=== PATIENT | male | born 1975 ===

== ENCOUNTER 2025-03-27 14:53 | Outpatient (AMB) | payer BC, SELFPAY ==
--- NOTE | 2025-03-27 14:57 | MHC.OFFVIS ---
Vital Signs 03/27/25 14:58 Height 6 ft 2 in Weight 266 lb BMI 34.1 BP 122/82 Blood Pressure Location Lt brachial Position Sitting Pulse 69 Pulse Source Pulse Oximeter Pulse Oximetry (%) 97 Oxygen Delivery Method Room Air Intake Visit Reasons: DVT (deep venous thrombosis), Obstructive sleep apnea, Pulmonary embolism Intake Note: pt is here as a new patient, PE Ship Pilot Dispatcher Required: No Allergies No Known Allergies Allergy (Verified 03/28/25 08:23) Medication List - Last Reconciled 03/28/25 by Zhanna Clarke MD allopurinol 300 mg PO DAILY indomethacin ER 75 mg PO DAILY PRN rivaroxaban (Xarelto) 10 mg PO DAILY Do you need a note to return to daycare/school/sports/work: No HPI HPI Obstructive sleep apnea: Details: TAQUERIA CEVALLOS ) is 50 years old gentleman. 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 Origionally from [facility], for the past many years he had established his Academy in [place]. 4 years ago( in 2020 ) he had sudden chest pain and shortness of breath. Evaluated at local hospital and found to have bilateral pulmonary emboli and bilateral DVT This was unprovoked ( No injuries ) Treated with. Anticoagulation and improved . He was started on Xarelto , which he kept on taking up until 2023.. No specific coagulation workup was done. He was followed up on a yearly basis by his it senior analyst.. In year 2023 he had stopped Xarelto for a couple of months. Then he had another bout of acute shortness of breath for which he did go back to the hospital and found to have bilateral pulmonary emboli. As well as residual DVT in right leg. He has had varicose veins in both legs . He tells me that he was found to have elevation of high sensitivity troponin-1. He did have echocardiogram . Cardiac duong has been okay , but he was getting annual cardiology follow-up. Now he has moved back to [facility]. He is very. 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 Does get mild shortness of breath without cough or wheezing , on high level physical activity. His current medications include allopurinol 300 mg daily, this is for hyperuricemia but he has not had any active gouty attacks. He was given indomethacin 75 mg p.o. once a day only p.r.n. if he has any gouty attack. He has not needed to use indomethacin. He is nonsmoker, nondrinker. He is moderately obese, but healthy, muscular. He denies any symptoms of sleep apnea. Claims that he sleeps good , may have some snoring but he has no respiratory pauses, no daytime sleepiness. [facility] Medical History (Updated 03/28/25 @ 09:05 by Zhanna Clarke MD) Obesity (BMI 30-39.9) Hyperuricemia DVT (deep venous thrombosis) Pulmonary embolism Social History Patient Tobacco Use Status: Never used Tobacco Review of Systems Const All systems reviewed & are unremarkable except as noted in HPI and below Eyes Reports no additional complaints ENT Reports no additional complaints Card Denies chest pain, Denies irregular heart rhythm, Reports leg edema (Mild when he is on his feet for a few hours) and Reports dyspnea on exertion (Mild with heavy exertion) Resp Denies cough, Denies hemoptysis, Reports dyspnea on exertion (Mild with heavy exertion) and Denies wheezing GI Reports no additional complaints Reports no additional complaints Musc Reports no additional complaints Skin/Breast Reports system reviewed and no additional complaints, except as documented Neuro Reports no additional complaints Psych Reports no additional complaints Endo Reports no additional complaints Aller/Immun Reports no additional complaints and Denies wheezing Physical Exam Vital Signs: Last Vital Signs Pulse 69 03/27/25 14:58 BP 122/82 03/27/25 14:58 Pulse Ox 97 03/27/25 14:58 Oxygen Delivery Method Room Air 03/27/25 14:58 BMI result Body Mass Index 34.1 Moderately obese but healthy looking Const General: healthy appearing, comfortable, no acute distress, alert and awake Orientation/consciousness: patient oriented x3 HEENT Head: Yes normal to inspection General nose exam: No nasal polyps present and No nasal discharge present Face and sinus: Yes sinuses nontender Mouth: oropharynx normal Throat: Yes posterior oropharynx normal Eyes General: appearance normal, both eyes and all related structures Neck Neck: Yes normal visual inspection, Yes no lymphadenopathy, Yes trachea midline and Yes no JVD Thyroid: Thyroid normal Chest Chest palpation & inspection: normal inspection of the chest, normal palpation of entire chest wall and no tenderness Resp Effort & Inspection: normal respiratory effort Auscultation: clear to auscultation bilaterally, no crackles, no rhonchi and no wheezes Cardio Palpation: normal PMI Rate: regular rate Rhythm: regular rhythm Heart sounds: no gallops and no murmurs Peripheral pulses: Peripheral pulses 2+ throughout GI Palpation (GI): Soft to palpation, nontender, No hepatosplenomegaly present and no masses Auscultation: normal bowel sounds Back/Spine/Pelvis Thoracic/Lumbar Spine: thoracic and lumbar spine normal to inspection Skin General skin exam: no rashes or lesions noted Neuro General: patient oriented x3 and no focal motor deficits Cranial nerves: Yes CN's II-XII intact bilaterally Extrem Other: He has prominent bilateral varicose veins, no active mass or tenderness. There is no significant stasis edema at this time General: Yes normal to inspection, Yes no clubbing, cyanosis or edema and Yes no calf tenderness Psych Appearance: grossly normal and well kempt Speech and movement: Normal speech and movement present Results Reviewed Results Reviewed: Awaiting to have copies of his previous workup and history from the [facility] in [place] Assessment & Plan Assessment & Plan (1) Pulmonary embolism: Comment: History of pulmonary embolism since 2020. Recurrent pulmonary embolism in 2023 . Most likely secondary to deep vein thrombosis lower extremities. He had stopped anticoagulation for a while in 2023 and had recurrent pulmonary embolisms. Now he stays on maintenance anticoagulation with Xarelto 10 mg daily. Remains asymptomatic . Code(s): I26.99 - Other pulmonary embolism without acute cor pulmonale Category: Medical Plan: Advised to continue Xarelto 10 mg daily. (2) DVT (deep venous thrombosis): Comment: History of DVT both lower extremities, secondary to varicose veins . He has had no specific coagulopathy workup. Code(s): I82.409 - Acute embolism and thrombosis of unspecified deep veins of unspecified lower extremity Category: Medical Plan: Advised to continue taking his Xarelto 10 mg daily (3) Hyperuricemia: Comment: He has history of hyperuricemia, may have had a mild attack of gout in 2020 but not afterwards. Continues on allopurinol 300 mg daily. Code(s): E79.0 - Hyperuricemia without signs of inflammatory arthritis and tophaceous disease Category: Medical Plan: Check his lab and the level of uric acid. Continue allopurinol but we may be able to cut down the dose to 150 depending upon the level of uric acid. (4) Obesity (BMI 30-39.9): Comment: He is moderately obese with current BMI 34.2. Denies symptoms of obstructive sleep apnea. Remains physically active. Code(s): E66.9 - Obesity, unspecified Category: Medical Plan: Discussed about being overweight, and he should try to reduce his weight, It will be best to keep BMI below 30. Plan * patient is looking for primary care physician. Also needs to have a regular follow-up with Cardiology on a yearly basis . We are going to facilitate him to get appointments with a PCP and Cardiology. Orders: Orders TSH reflex Free T4 03/30/25 E66.9 - Obesity, unspecified, E79.0 - Hyperuricemia without signs of inflammatory arthritis and tophaceous disease Uric Acid 03/30/25 E79.0 - Hyperuricemia without signs of inflammatory arthritis and tophaceous disease PFT pulmonary function test 03/27/25 I26.99 - Other pulmonary embolism without acute cor pulmonale, I82.409 - Acute embolism and thrombosis of unspecified deep veins of unspecified lower extremity Basic Metabolic Panel Fasting 03/30/25 E66.9 - Obesity, unspecified, I26.99 - Other pulmonary embolism without acute cor pulmonale Lipid Panel with Reflex 03/30/25 E66.9 - Obesity, unspecified, E79.0 - Hyperuricemia without signs of inflammatory arthritis and tophaceous disease, I26.99 - Other pulmonary embolism without acute cor pulmonale Complete Blood Count Auto Diff 03/30/25 I26.99 - Other pulmonary embolism without acute cor pulmonale Coding Level of Care Code New Pt Level 3 (13410) Diagnoses Pulmonary embolism I26.99 DVT (deep venous thrombosis) I82.409 Hyperuricemia E79.0 Obesity (BMI 30-39.9) E66.9 DVT History of Present Illness Current symptoms: Denies chest pain
[2025-03-27 14:58] VITALS: BP 122/82; PULSE 69; O2SAT 97; BMI 34.1
--- OUTSIDE RECORDS SUMMARY | 2025-03-27 14:59 | XMS_ITS | Patient Health Record ---
Author Organization Joni Easley MD [facility] Address [address] [place], [place] [id number] Care Team Providers Care Foreign Student Adviser Name Role Phone Oliver Patton Primary Care Provider Joni Lima Unavailable Unavailable Allergies No Known Allergies Reason For Referral No Information Medications Medication SIG (Take, Route, Frequency, Duration) Notes Start Date End Date Status Allopurinol 300 MG 1 tablet Orally Once a day for 30 day(s) Not-Taking Aspirin 81 MG 1 tablet Orally Once a day for 30 day(s) Not-Taking Xarelto 10 MG 1 tablet Orally Once a day Active Meloxicam 10 MG 1 capsule Orally Onc e a day for 30 day(s) PRN Active PEG 3350-KCl-Na Bicarb-NaCl 420 GM 4000 mls Orally once from 4-8 pm for 1 days Not-Takin g Indomethacin ER 75 MG TAKE 1 CAPSULE BY MOUTH EVERY DAY Oral for 20 PRN Active Social History Tobacco Use: Social History Observation Description Date Details (start date - stop date) Never Smoker NA - NA Tobacco Use/Smoking Question Answer Notes Are you a nonsmoker Alcohol Screen Question Answer Notes Did you have a drink containing alcohol in the p ast year? No Points 0 Interpretation Negative Problems Problem Type SNOMED Code ICD Code Onset Dates Problem Status W/U Status Risk Notes Problem Diverticula of intestine (32667016) Diverticulosis of intestine, part unspecified, without perforation or abscess without bleeding (K57.90) Active confirmed Problem Change in bowel habit (95334085) Change in bowel habit (R19.4) Active confirmed Problem Screening for malignant neoplasm of colon (218122399) Encounter for screening for malignant neoplasm of colon (Z12.11) Active confirmed Plan Of Treatment No Information Insurance Providers Payer Name Payer Address Payer Phone Subscriber Number Group Number Insured Name Patient Relationship to Insured Coverage Start Date Coverage End Date BCBS PPO [address] [place] [address] [id number] TAQUERIA ANDRADE Self - patient is the insured Medical (General) History Medical History History ICD Code pulmonary embolism deep vein thrombosis Has had both Moderna COVID shots Surgical History Surgery Date(Month/Year) Hospitalization History Reason Date(Month/Year) [facility]/PULMONARY ISSUES 1
== END 2025-03-27 15:40 | disposition home or self-care (01) ==
LOC: HO.HPS 14:53
PROVIDERS: Visit Provider Internal Medicine
DX: I26.99 Other pulmonary embolism without acute cor pulmonale (principal); I82.409 Acute embolism and thrombosis of unspecified deep veins of unspecified lower extremity; E79.0 Hyperuricemia without signs of inflammatory arthritis and tophaceous disease; E66.9 Obesity, unspecified
CPT/HCPCS: 99203

== ENCOUNTER → 2025-03-27 14:53 | Outpatient (BNVA) | payer BC, SELFPAY | PROVIDERS: Visit Provider Internal Medicine ==

== ENCOUNTER 2025-03-30 09:15 | Outpatient (REF) | payer BC, SELFPAY ==
[2025-03-30 09:24] LABS: MANUAL DIFF FLAG NO
[2025-03-30 09:37] LABS: Basophils Percent Auto 0.6 % (0-2); Eosinophils Absolute Auto 0.2 X10*3/uL (0.0-0.4); Hematocrit 42.6 % (42.0-52.0); Hemoglobin 14.3 g/dl (14.0-18.0); Imm Gran Abs Auto 0.02 X10*3/uL (0.00-0.03); Imm Gran Pct Auto 0.3 % (0.0-0.4); Lymphocytes Absolute Auto 2.8 X10*3/uL (1.2-4.9); Lymphocytes Percent Auto 43.4 % (20-40); Mean Corpuscular HGB Conc 33.6 g/dl (31.0-36.0); Mean Corpuscular Hemoglobin 31.3 pg (27.0-33.0); Mean Corpuscular Volume 93.2 fL (80.0-98.0); Mean Platelet Volume 10.9 fL (9.4-12.4); Monocytes Absolute Auto 0.6 X10*3/uL (0.1-1.2); Monocytes Percent Auto 9.3 % (2-11); Neutrophils Absolute Auto 2.8 x10*3/uL (2.0-8.3); Neutrophils Percent Auto 43.4 % (45-73); Platelet Count 211 X10*3/uL (160-400); Red Blood Count 4.57 X10*6/uL (4.60-5.80); Red Cell Distribution Width 13.7 % (11.0-16.0); White Blood Count 6.3 X10*3/uL (4.8-10.8)
[2025-03-30 10:11] LABS: Anion Gap 10 (12-20); Blood Urea Nitrogen 19 mg/dL (9-16); Calcium 9.3 mg/dL (8.4-10.2); Carbon Dioxide 27 mmol/L (22-29); Chloride 106 mmol/L (96-108); Cholesterol 196 mg/dL (<200); Estimated Glomerular Filt Rate > 60; Glucose Fasting 111 mg/dL (60-99); HDL Cholesterol 81 mg/dL (>40); LDL Cholesterol Calculated 105 mg/dL (<100); Potassium 4.1 mmol/L (3.3-5.1); Sodium 139 mmol/L (135-145); Triglycerides 53 mg/dL (<150); Uric Acid 7.3 mg/dL (3.4-7.0)
[2025-03-30 10:30] LABS: TSH reflex Free T4 1.29 uIU/mL (0.32-4.0)
[2025-03-30 11:46] LABS: Reflex LDLD? No
== END 2025-03-30 09:16 | disposition home or self-care (01) ==
LOC: HO.LAB 09:15
PROVIDERS: Visit Provider Internal Medicine
DX: E66.9 Obesity, unspecified (principal); I26.99 Other pulmonary embolism without acute cor pulmonale; E79.0 Hyperuricemia without signs of inflammatory arthritis and tophaceous disease
CPT/HCPCS: 36415; 80048; 80061; 84443; 84550; 85025

== ENCOUNTER 2025-07-09 16:12 | Outpatient (REF) | payer BC, SELFPAY ==
--- NOTE | 2025-07-09 16:16 | PFT_ITS ---
Flows: FEV1: 120 % of predicted at 4.50 L FVC: 118 % of predicted at 5.63 L FEV1/FVC: 80 % Bronchodilator response: Patient declined bronchodilator Volumes: Total lung capacity: 92 % of predicted at 7.56 L Residual volume: 88 % of predicted at 1.93 L Slow vital capacity: 93 % of predicted at 5.63 L Expiratory reserve volume: 100 % of predicted at 1.74 L Diffusion capacity: Normal Impression: No obstructive or restrictive ventilatory defect. Patient declined bronchodilator. MTDD
--- OUTSIDE RECORDS SUMMARY | 2025-07-09 19:05 | XMS_ITS | Patient Health Record ---
Author Organization Joni Easley MD [facility] Address [address] [place], [place] [id number] Care Team Providers Care Component Assembler Name Role Phone Oliver Patton Primary Care Provider Joni Lima Unavailable Unavailable Allergies No Known Allergies Reason For Referral No Information Medications Medication SIG (Take, Route, Frequency, Duration) Notes Start Date End Date Status Allopurinol 300 MG 1 tablet Orally Once a day; Duration: 30 day(s) Not-Taking Aspirin 81 MG 1 tablet Orally Once a day; Duration: 30 day(s) Not-Taking Xarelto 10 MG 1 tablet Orally Once a day Active Meloxicam 10 MG 1 capsule Orally Onc e a day; Duration: 30 day(s) PRN Active PEG 3350-KCl-Na Bicarb-NaCl 420 GM 4000 mls Orally once from 4-8 pm; Duration: 1 days Not-Taking Indomethacin ER 75 MG TAKE 1 CAPSULE BY MOUTH EVERY DAY Oral; Duration: 20 PRN Active Social History Tobacco Use: [...] Status Risk Notes Problem Diverticula of intestine (28296718) Diverticulosis of intestine, part unspecified, without perforation or abscess without bleeding (K57.90) Active confirmed Problem Change in bowel habit (68691002) Change in bowel habit (R19.4) Active confirmed Problem Screening for malignant neoplasm of colon (197302652) Encounter for screening for malignant neoplasm of colon (Z12.11) Active confirmed Plan Of Treatment No Information Insurance Providers Payer Name Payer Address Payer Phone Subscriber Number Group Number Insured Name Patient Relationship to Insured Coverage Start Date Coverage End Date BCBS PPO [address] [place] [address] [id number] TAQUERIA ANDRADE Self - patient is the insured Medical (General) History Medical History History ICD Code pulmonary embolism deep vein thrombosis Has had both Moderna COVID shots Surgical History Surgery Date(Month/Year) Hospitalization History Reason Date(Month/Year) [facility]/PULMONARY ISSUES 1
== END 2025-07-09 16:13 | disposition home or self-care (01) ==
LOC: HO.RESP 16:12
PROVIDERS: Visit Provider Internal Medicine
DX: I26.99 Other pulmonary embolism without acute cor pulmonale (principal); I82.409 Acute embolism and thrombosis of unspecified deep veins of unspecified lower extremity
CPT/HCPCS: 94010; 94727; 94729

== ENCOUNTER → 2025-07-09 16:16 | Outpatient (BNV) | payer BC, SELFPAY | PROVIDERS: Visit Provider Internal Medicine Pulmonary Disease | DX: I26.99 Other pulmonary embolism without acute cor pulmonale (principal) | CPT/HCPCS: 94060; 94727; 94729 ==

== ENCOUNTER 2025-07-15 09:45 | Outpatient (AMB) | payer BC, SELFPAY ==
[2025-07-15 09:50] VITALS: BP 130/80; PULSE 59; O2SAT 99; BMI 34.0
--- NOTE | 2025-07-15 09:50 | MHC.OFFVIS ---
Vital Signs 07/15/25 09:50 Height 6 ft 2 in Weight 265 lb BMI 34.0 BP 130/80 Blood Pressure Location Lt brachial Position Sitting Pulse 59 Pulse Source Pulse Oximeter Pulse Oximetry (%) 99 Oxygen Delivery Method Room Air Intake Visit Reasons: Obstructive sleep apnea Intake Note: pt is here for follow up and states he is feeling okay, had pft Explosive Man Required: No Allergies No Known Allergies Allergy (Verified 07/15/25 10:25) Medication List - Last Reconciled 07/15/25 by Zhanna Clarke MD allopurinol 300 mg PO DAILY indomethacin ER 75 mg PO DAILY PRN rivaroxaban (Xarelto) 10 mg PO DAILY Do you need a note to return to daycare/school/sports/work: No HPI HPI Obstructive sleep apnea: Details: Pinky Tripp. 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 He is on ongoing anticoagulation, because of recurrence of DVT when he went off the anticoagulantion . His previous echocardiogram done in [place] has shown pulmonary hypertension. .At present he has no symptoms at all, especially no chest pain and no shortness of breath, and no swelling of the legs. He has no ill effects from Xarelto 10 mg daily. [facility] Medical History Obesity (BMI 30-39.9) Hyperuricemia DVT (deep venous thrombosis) Pulmonary embolism Social History Patient Tobacco Use Status: Never used Tobacco Review of Systems Const All systems reviewed & are unremarkable except as noted in HPI and below Eyes Reports no additional complaints ENT Reports no additional complaints Card Denies chest pain, Denies irregular heart rhythm, Reports leg edema (Mild when he is on his feet for a few hours) and Reports dyspnea on exertion (Mild with heavy exertion) Resp Denies cough, Denies hemoptysis, Reports dyspnea on exertion (Mild with heavy exertion) and Denies wheezing GI Reports no additional complaints Reports no additional complaints Musc Reports no additional complaints Skin/Breast Reports system reviewed and no additional complaints, except as documented Neuro Reports no additional complaints Psych Reports no additional complaints Endo Reports no additional complaints Aller/Immun Reports no additional complaints and Denies wheezing Physical Exam Vital Signs: Last Vital Signs Pulse 59 07/15/25 09:50 BP 130/80 07/15/25 09:50 Pulse Ox 99 07/15/25 09:50 Oxygen Delivery Method Room Air 07/15/25 09:50 BMI result Body Mass Index 34.0 Moderately obese but healthy looking Const General: healthy appearing, comfortable, no acute distress, alert and awake Orientation/consciousness: patient oriented x3 HEENT Head: Yes normal to inspection General nose exam: No nasal polyps present and No nasal discharge present Face and sinus: Yes sinuses nontender Mouth: oropharynx normal Throat: Yes posterior oropharynx normal Eyes General: appearance normal, both eyes and all related structures Neck Neck: Yes normal visual inspection, Yes no lymphadenopathy, Yes trachea midline and Yes no JVD Thyroid: Thyroid normal Chest Chest palpation & inspection: normal inspection of the chest, normal palpation of entire chest wall and no tenderness Resp Effort & Inspection: normal respiratory effort Auscultation: clear to auscultation bilaterally, no crackles, no rhonchi and no wheezes Cardio Palpation: normal PMI Rate: regular rate Rhythm: regular rhythm Heart sounds: no gallops and no murmurs Peripheral pulses: Peripheral pulses 2+ throughout GI Palpation (GI): Soft to palpation, nontender, No hepatosplenomegaly present and no masses Auscultation: normal bowel sounds Back/Spine/Pelvis Thoracic/Lumbar Spine: thoracic and lumbar spine normal to inspection Skin General skin exam: no rashes or lesions noted Neuro General: patient oriented x3 and no focal motor deficits Cranial nerves: Yes CN's II-XII intact bilaterally Extrem Other: He has prominent bilateral varicose veins, no active mass or tenderness. There is no significant stasis edema at this time General: Yes normal to inspection, Yes no clubbing, cyanosis or edema and Yes no calf tenderness Psych Appearance: grossly normal and well kempt Speech and movement: Normal speech and movement present Results Reviewed Results Reviewed: Pulmonary function test on 07/09/2025 normal. Assessment & Plan Assessment & Plan (1) Pulmonary embolism: Comment: History of pulmonary embolism since 2020. Recurrent pulmonary embolism in 2023 . Most likely secondary to deep vein thrombosis lower extremities. He had stopped anticoagulation for a while in 2023 and had recurrent pulmonary embolisms. Now he stays on maintenance anticoagulation with Xarelto 10 mg daily. Remains asymptomatic . Code(s): I26.99 - Other pulmonary embolism without acute cor pulmonale Category: Medical Plan: PRESCRIPTION FOR XARELTO IS RENEWED (2) DVT (deep venous thrombosis): Comment: History of DVT both lower extremities, secondary to varicose veins . He has had no specific coagulopathy workup. Code(s): I82.409 - Acute embolism and thrombosis of unspecified deep veins of unspecified lower extremity Category: Medical Plan: ADVISED TO USE PRESSURE STOCKINGS, DURING THE DAYTIME, WHEN HE HAS TO BE ON HIS. FEET FOR LONG PERIODS (3) Obesity (BMI 30-39.9): Comment: He is moderately obese with current BMI 34.0 Denies symptoms of obstructive sleep apnea. Remains physically active. Code(s): E66.9 - Obesity, unspecified Category: Medical Plan: INSTRUCTED THAT HE SHOULD TRY TO LOSE AT LEAST 10-15 LB OF WEIGHT (4) Hyperuricemia: Comment: He has history of hyperuricemia, may have had a mild attack of gout in 2020 but not afterwards. Continues on allopurinol 300 mg daily. Code(s): E79.0 - Hyperuricemia without signs of inflammatory arthritis and tophaceous disease Category: Medical Plan: CONTINUE TO USE ALLOPURINOL 300 MG DAILY Plan * EXPLAINED ABOUT PULMONARY FUNCTION TEST WHICH IS ESSENTIALLY NORMAL. TO CHECK FOR PULMONARY HYPERTENSION, ECHOCARDIOGRAM IS ORDERED. Orders: Orders CA echo transthoracic complete Today I26.99 - Other pulmonary embolism without acute cor pulmonale, I82.409 - Acute embolism and thrombosis of unspecified deep veins of unspecified lower extremity Medications: New rivaroxaban (Xarelto) for 35 days 10 mg PO DAILY 90 tabs 3RF DVT /PULMONARY EMBOLISM 90 days Coding Level of Care Code Est Pt Level 3 (59779) Diagnoses Pulmonary embolism I26.99 DVT (deep venous thrombosis) I82.409 Obesity (BMI 30-39.9) E66.9 Hyperuricemia E79.0
--- OUTSIDE RECORDS SUMMARY | 2025-07-15 11:54 | XMS_ITS | Patient Health Record ---
Author Organization Joni Easley MD [facility] Address [address] [place], [place] [address] Care Team Providers Care Branch Library Clerk Name Role Phone Oliver Patton Primary Care [...] Status Risk Notes Problem Diverticula of intestine (34864123) Diverticulosis of intestine, part unspecified, without perforation or abscess without bleeding (K57.90) Active confirmed Problem Change in bowel habit (92433017) Change in bowel habit (R19.4) Active confirmed Problem Screening for malignant neoplasm of colon (117699291) Encounter for screening for malignant neoplasm of colon (Z12.11) Active confirmed Plan Of Treatment No Information Insurance Providers Payer Name Payer Address Payer Phone Subscriber Number Group Number Insured Name Patient Relationship to Insured Coverage Start Date Coverage End Date BCBS PPO [address] [place] [address] [id number] TAQUERIA ANDRADE Self - patient is the insured Medical (General) History Medical History History ICD Code pulmonary embolism deep vein thrombosis Has had both Moderna COVID shots Surgical History Surgery Date(Month/Year) Hospitalization History Reason Date(Month/Year) [facility]/PULMONARY ISSUES 1
== END 2025-07-15 10:28 | disposition home or self-care (01) ==
LOC: HO.HPS 09:46
PROVIDERS: Visit Provider Internal Medicine
DX: I26.99 Other pulmonary embolism without acute cor pulmonale (principal); I82.409 Acute embolism and thrombosis of unspecified deep veins of unspecified lower extremity; E66.9 Obesity, unspecified; E79.0 Hyperuricemia without signs of inflammatory arthritis and tophaceous disease
CPT/HCPCS: 99213

== ENCOUNTER → 2025-09-06 09:02 | Outpatient (REF) | payer BC, SELFPAY ==
--- NOTE | 2025-09-06 09:12 | CA_ITS ---
Transthoracic Echocardiogram Patient (Last, First, Middle): Qasim Grullon A Gender: Male Date of : 1975 Age: 50 Procedure Date: 09/06/2025 Procedure Type: Transthoracic Echocardiogram Location: OP Height: 187.96 cm Weight: 120.2 kg BSA: 2.45 m2 Heart Rate: 51 bpm BP: 130 / 80 mmHg Strategy Analyst: REID Scherer MD: Zhanna Clarke MD Linseed Cake Trimmer: Jose Luis Cantor MD Symptoms: I26.99 - Other pulmonary embolism without acute cor pulmonale Study Quality: Adequate ECG Rhythm: Bradycardia Conclusions: - 1. Moderately dilated left ventricle with mild left ventricular hypertrophy with normal LV ejection fraction 55-60% next 2. Mildly dilated right ventricle with preserved contractility 3. Normal cardiac valvular Dopplers next 4. Normal RV systolic pressure 5. Mildly dilated ascending aorta at 4 cm 6. No pericardial effusion Findings Left Ventricle Moderately increased left ventricular cavity size. There is mildly increased left ventricular wall thickness. The left ventricular systolic function is normal. The visually estimated ejection fraction is between 55-60%. There is no evidence of regional wall motion abnormalities. Spectral Doppler is indicative of a normal filling pattern. Right Ventricle Mildly increased right ventricular cavity size. There is normal right ventricular systolic function. Atria Both atria are normal in size. There is no evidence of interatrial shunt. Aortic Valve The aortic valve structure and function is likely normal. There is no aortic valve stenosis. There is no aortic valve regurgitation. Mitral Valve Normal mitral valve structure and function. There is trace mitral valve regurgitation. There is no mitral valve stenosis. Pulmonic Valve The pulmonic valve is likely normal. Tricuspid Valve Normal tricuspid valve structure. There is trace tricuspid valve regurgitation. The right ventricular systolic pressure is normal. The right ventricular systolic pressure is 25 mmHg. Normal right atrial pressure. There is no evidence of pulmonary hypertension. Great Vessels The pulmonary artery was not well visualized. There is mild dilatation of the ascending aorta measuring 4.00 cm. Venous The inferior vena cava is normal in size and collapses greater than 50% with inspiration. Pericardium/Pleural There is no evidence of pericardial effusion. Prior Study Comparison No prior study available for comparison. Measurements 2D Linear Measurements IVSd: 1.23 0.6-0.9/0.6-1.0 cm LVIDd: 6.63 3.9-5.3/4.2-5.9 cm LVIDd Index: 2.71 2.4-3.2/2.2-3.1 cm/m2 LVIDs: 5.25 2.0-3.6 cm LVPWd: 0.97 0.7-1.1 cm LA Diam: 5.00 2.7-3.8/3.0-4.0 cm LAIDs Index: 2.04 1.5-2.3 cm/m2 LV Mass: 413.16 67-162/88-224 g LV Mass Index: 168.63 43-95/49-115 g/m2 LVOT Diam: 2.80 3.0+(-)1.3 cm Mitral Valve MV Pk E: 0.64 MV PK A: 0.44 MV Decel Time: 230.00 E/A: 1.50 E'Lateral: 7.72 E'Medial: 7.62 E/E' Med: 8.40 E/E' Lat: 8.30 PHT: 67.00 MVA PHT: 3.28 Decel [place]: 2.79 Aortic Valve AoV Pk Liam: 1.00 AoV Pk Grad: 4.00 JOSE: 4.42 LVOT LVOT Pk Liam: 0.72 LVOT Mn Liam: 0.52 LVOT VTI: 0.17 LVOT Pk Grad: 2.00 LVOT Mn Grad: 1.00 LVOT Diam: 2.80 LVOT Area: 6.16 Diastolic Function MV Pk E: 0.64 MV Pk A: 0.44 E/A: 1.50 E'Medial: 7.62 E/E' Med: 8.40 E' Laterial: 7.72 E/E' Lat: 8.30 Right Ventricle TAPSE (mm): 23.30 TVS' Liam: 12.00 Tricuspid Valve TR Pk Liam: 2.34 TR Pk Grad: 22.00 RA Press: 3.00 RVSP: 25.00 Great Vessels Aorta Sinus of Valsalva: 4.30 2.0-3.5 cm Ao Asc: 4.00 2.1-3.4 cm Ao Arch: 3.80 Ao Desc: 3.10 Pulmonary Valve PV Pk Liam: 0.74 Peak PV Grad: 2.00 VT Pk Liam: 2.04 Updated in Other Vendor System with Status of Final Jose Luis Cantor MD electronically signed on 09/06/2025 4:16:44 PM with status of Final
== END ==
LOC: HO.CARD 09:02
PROVIDERS: Visit Provider Internal Medicine
DX: I26.99 Other pulmonary embolism without acute cor pulmonale (principal); Z86.718 Personal history of other venous thrombosis and embolism
CPT/HCPCS: 93306

== ENCOUNTER → 2025-09-06 09:12 | Outpatient (BNV) | payer BC, SELFPAY | PROVIDERS: Visit Provider Internal Medicine Cardiovascular Disease | DX: I51.7 Cardiomegaly (principal); I77.810 Thoracic aortic ectasia | CPT/HCPCS: 93306 ==